=== PATIENT | female | born 1965 | race Caucasian/White ===

== ENCOUNTER 2017-06-20 20:13 | Emergency (ER) | payer MEDICAID ==
--- NOTE | 2017-06-20 20:15 | EDPHY ---
H & P Time Seen by Provider: 06/20/17 20:14 HPI/ROS: CHIEF COMPLAINT: Abnormal motor and sensory symptoms right arm, history of PTSD and conversion disorder HISTORY OF PRESENT ILLNESS: The patient is brought to the emergency department from outpatient psychiatric care residence with reported sensations of paresthesias in her right arm in abnormal right arm and leg movements. Patient denies any history of fall or trauma. The patient does have a history of anxiety and PTSD. The patient has a history of the symptoms chronically. She was hospitalized in 2016 with a similar presentation. At that point time she had extensive evaluation by Neurology and was felt to be experiencing a conversion disorder. The patient denies any history of fever, cough, congestion , dysuria or acute pain. She denies any complaints of neck pain or history of cervical manipulation. REVIEW OF SYSTEMS: A comprehensive 10 point review of systems is otherwise negative aside from elements mentioned in the history of present illness. Source: Patient - Medical/Surgical History Hx Asthma: No Hx Chronic Respiratory Disease: No Hx Diabetes: No Hx Cardiac Disease: No Hx Renal Disease: No Hx Cirrhosis: No Hx Alcoholism: No Hx HIV/AIDS: No Hx Splenectomy or Spleen Trauma: No Other PMH: HTN, PITUITARY ADENOMA/ PTSD, early dementia, SZ disorder - Social History Smoking Status: Never smoked - Physical Exam Exam: General Appearance: Alert, no distress Eyes: Pupils equal and round no pallor or injection ENT, Mouth: Mucous membranes moist Respiratory: There are no retractions, lungs are clear to auscultation Cardiovascular: Regular rate and rhythm Gastrointestinal: Abdomen is soft and nontender, no masses, bowel sounds normal Neurological: Alert and oriented x4, 5/5 strength noted all 4 extremities, sensation appears intact in all 4 extremities, cranial nerves 2-12 intact Skin: Warm and dry, no rashes Musculoskeletal: Neck is supple nontender Extremities: symmetrical, full range of motion Psychiatric: Patient is oriented X 3, there is no agitation Constitutional: Initial Vital Signs Temperature (C) 37.3 C 06/20/17 20:19 Heart Rate 78 06/20/17 20:19 Respiratory Rate 18 06/20/17 20:19 Blood Pressure 154/100 H 06/20/17 20:19 O2 Sat (%) 94 06/20/17 20:19 O2 Delivery Mode Room Air Allergies/Adverse Reactions: diazepam [From Valium] Allergy (Verified 01/26/16 22:13) Penicillins Allergy (Verified 09/24/15 18:03) Home Medications: Medication Instructions Recorded RX: ARIPiprazole [Abilify 5 mg (*)] 5 mg PO DAILY 01/27/16 RX: Albuterol [Proventil Inhaler 2 puffs IH Q4 PRN 01/27/16 HFA (*)] RX: Beclomethasone Qvar 40 [Qvar 1 puffs IH BID 01/27/16 40 (*)] RX: Cholecalciferol Vit D3 50,000 unit PO SA 01/27/16 [Vitamin D3 (*)] RX: Escitalopram Oxalate [Lexapro 10 mg PO DAILY 01/27/16 10 MG] RX: Ibuprofen [Motrin (*)] 600 mg PO Q6 PRN 01/27/16 RX: Melatonin [Melatonin 3 MG (*)] 6 mg PO HS 01/27/16 RX: Polyethylene Glycol 3350 17 gm PO DAILY 01/27/16 [Miralax 17 gm (*)] RX: Triamcinolone 0.1% 1 nuvia TP BID 01/27/16 [Triamcinolone 0.1% Cream (*)] RX: traZODone [traZODONE 50MG (*)] 50 mg PO HS 01/27/16 Medical Decision Making ED Course/Re-evaluation: I reviewed the patient's past medical records including her hospitalization in 2016 and subsequent neurologic consultation. The patient's presentation today is consistent with her prior presentations. I believe that she is experiencing acute conversion reaction and is not experiencing a stroke or true seizure disorder. Patient's vital signs are normal. The patient was observed to have some clonic jerking in the arm and leg which was intermittent in appeared to be voluntary. The patient's laboratory studies are unremarkable. She presents to the ED with chronic neurologic symptoms likely secondary to an ongoing conversion disorder. She did receive benzodiazepines intramuscularly prior to arrival. At this point time I do not feel that further workup is indicated. The patient is not suicidal or homicidal. She is currently under the care of [facility] for her anxiety disorder. Differential Diagnosis: Differential diagnosis considered includes seizure, stroke - Data Points Laboratory Results: Laboratory Results 06/20/17 20:05 06/20/17 20:05 06/20/17 06/20/17 20:05 20:05 WBC 8.09 10^3/uL 10^3/uL (3.80-9.50) RBC 4.47 10^6/uL 10^6/uL (4.18-5.33) Hgb 14.2 g/dL g/dL (12.6-16.3) Hct 39.1 % % (38.0-47.0) MCV 87.5 fL fL (81.5-99.8) MCH 31.8 pg pg (27.9-34.1) MCHC 36.3 g/dL g/dL (32.4-36.7) RDW 12.6 % % (11.5-15.2) Plt Count 268 10^3/uL 10^3/uL (150-400) MPV 8.9 fL fL (8.7-11.7) Neut % (Auto) 43.9 % % (39.3-74.2) Lymph % (Auto) 48.1 % H % (15.0-45.0) [place] % (Auto) 5.3 % % (4.5-13.0) Eos % (Auto) 1.9 % % (0.6-7.6) Baso % (Auto) 0.6 % % (0.3-1.7) Nucleat RBC Rel Count 0.0 % % (0.0-0.2) Absolute Neuts (auto) 3.55 10^3/uL 10^3/uL (1.70-6.50) Absolute Lymphs (auto) 3.89 10^3/uL H 10^3/uL (1.00-3.00) Absolute Monos (auto) 0.43 10^3/uL 10^3/uL (0.30-0.80) Absolute Eos (auto) 0.15 10^3/uL 10^3/uL (0.03-0.40) Absolute Basos (auto) 0.05 10^3/uL 10^3/uL (0.02-0.10) Absolute Nucleated RBC 0.00 10^3/uL 10^3/uL (0-0.01) Immature Gran % 0.2 % % (0.0-1.1) Immature Gran # 0.02 10^3/uL 10^3/uL (0.00-0.10) Sodium 143 mEq/L mEq/L (134-144) Potassium 3.8 mEq/L mEq/L (3.5-5.2) Chloride 105 mEq/L mEq/L (97-110) Carbon Dioxide 28 mEq/l mEq/l (22-31) Anion Gap 10 mEq/L mEq/L (8-16) BUN 9 mg/dL mg/dL (7-23) Creatinine 0.8 mg/dL mg/dL (0.6-1.0) Estimated GFR > 60 Glucose 87 mg/dL mg/dL (70-100) Calcium 9.4 mg/dL mg/dL (8.5-10.4) Departure - Departure Disposition: Home, Routine, Self-Care Clinical Impression: Anxiety Condition: Good Instructions: Anxiety (ED) Additional Instructions: Please follow up as scheduled with [facility]. Referrals: Paul Reeder MD [Primary Care Provider] - As per Instructions
[2017-06-20 20:31] LABS: % IMMATURE GRANULYOCYTES 0.2 % (0.0-1.1); ABSOLUTE IMMATURE GRANULOCYTES 0.02 10^3/uL (0.00-0.10); ADD DIFF? NO; ADD MORPH? NO; ADD SCAN? NO; ATYPICAL LYMPHOCYTE FLAG 0 (0-99); FRAGMENT RBC FLAG 0 (0-99); HEMATOCRIT 39.1 % (38.0-47.0); HEMOGLOBIN 14.2 g/dL (12.6-16.3); LEFT SHIFT FLG 0 (0-99); LIPEMIA HEMOLYSIS FLAG 90 (0-99); MEAN CELL HEMOGLOBIN 31.8 pg (27.9-34.1); MEAN CELL HEMOGLOBIN CONCENTR. 36.3 g/dL (32.4-36.7); MEAN CELL VOLUME 87.5 fL (81.5-99.8); MEAN PLATELET VOLUME 8.9 fL (8.7-11.7); PLATELET CLUMPS FLAG 10 (0-99); PLATELET COUNT 268 10^3/uL (150-400); RED BLOOD CELL COUNT 4.47 10^6/uL (4.18-5.33); RED CELL DISTRIBUTION WIDTH 12.6 % (11.5-15.2)
[2017-06-20 20:47] LABS: ANION GAP 10 mEq/L (8-16); CALCIUM 9.4 mg/dL (8.5-10.4); CARBON DIOXIDE 28 mEq/l (22-31); CHLORIDE 105 mEq/L (97-110); CREATININE 0.8 mg/dL (0.6-1.0); GLOMERULAR FILTRATION RATE > 60; GLUCOSE 87 mg/dL (70-100); POTASSIUM 3.8 mEq/L (3.5-5.2); SODIUM 143 mEq/L (134-144)
[2017-06-20 22:42] VITALS: BP 142/80; PULSE 76; RESP 16; TEMP 98.1; O2SAT 95
== END 2017-06-20 21:26 | disposition home or self-care (01) ==
LOC: EDUNIT#
DX: F41.9 Anxiety disorder, unspecified (principal); I10 Essential (primary) hypertension

== ENCOUNTER 2017-06-23 16:07 | Emergency (ER) | payer MEDICAID ==
--- NOTE | 2017-06-23 16:18 | EDPHY ---
H & P HPI/ROS: CHIEF COMPLAINT: Right leg pain HISTORY OF PRESENT ILLNESS: This patient is a non-anticoagulated 51 y/o female with history of conversion disorder often presenting as right-sided deficits complaining of right leg pain onset Thursday, two days ago. Thursday, she had a focal seizure, which usually involve her right side and present with shaking. Since that time, she has had pain in her right ankle which radiates up to her calf. She also has occasional swelling in right ankle and right hand. The pain at the back of her right calf makes it difficult for her to sleep on her right side. She has experienced right -sided facial paresthesias since Thursday as well. She has not taken any pain mediation today. She denies chest pain, shortness of breath, fever, or other associated symptoms. The patient was evaluated in this emergency department 06/20/17 following an episode of right-sided paresthesias and abnormal right-sided arm and leg movements. Her laboratory studies and examination at that time were unremarkable. She was hospitalized in 2015 with a similar presentation and had an extensive neurology evaluation. She was felt to be experiencing a conversion disorder at that time. She is currently under the care of [facility] and currently lives at [facility], a mental health rehabilitation and treatment facility. REVIEW OF SYSTEMS: A 10 point review of systems was performed and is negative with the exception of the elements mentioned in the history of present illness. Past Medical/Surgical History: 1. PTSD, MDD, Anxiety 2. History of possible conversion disorder. Patient reports history of CVA / seizure disorder. 3. Hypertension 4. Asthma 5. Early dementia 6. Pituitary adenoma Past medical records reviewed including ED visit 06/20/17 and admission 01/26/16. Social History: Nonsmoker. Lives at [facility]. Smoking Status: Never smoked Physical Exam: General Appearance: Alert, no distress Eyes: Pupils equal and round, no conjunctival pallor or injection ENT, Mouth: Mucous membranes moist Neck: Normal inspection Respiratory: Lungs are clear to auscultation Cardiovascular: Regular rate and rhythm Gastrointestinal: Abdomen is soft and non- tender Neurological: A&O, nonfocal, normal gait Skin: Warm and dry, no rash Extremities: Normal inspection of left leg. Tenderness over posterior aspect of right calf. Normal vascular exam. No edema. Psychiatric: Mood and affect normal Constitutional: Initial Vital Signs Temperature (C) 36.8 C 11/28/17 16:19 Heart Rate 76 06/23/17 16:19 Respiratory Rate 16 06/23/17 16:19 Blood Pressure 138/97 H 06/23/17 16:19 O2 Sat (%) 94 06/23/17 16:19 O2 Delivery Mode Room Air Allergies/Adverse Reactions: diazepam [From Valium] Allergy (Verified 06/23/17 16:21) Penicillins Allergy (Verified 06/23/17 16:21) Home Medications: Medication Instructions Recorded ARIPiprazole [Abilify 5 mg (*)] 5 mg PO DAILY 01/27/16 Albuterol [Proventil Inhaler HFA 2 puffs IH Q4 PRN 01/27/16 (*)] Escitalopram Oxalate [Lexapro 10 10 mg PO DAILY 01/27/16 MG] Ibuprofen [Motrin (*)] 600 mg PO Q6 PRN 01/27/16 Melatonin [Melatonin 3 MG (*)] 6 mg PO HS 01/27/16 Fosamax 70 MG (*) 06/23/17 Gabapentin 06/23/17 Risperidone 06/23/17 Vistaril 06/23/17 Medical Decision Making - Diagnostics Imaging Results: Imaging Impressions Extremity Venous Study 06/23/17 16:22 Impression: No deep venous thrombosis right leg. Findings and recommendations discussed with Emergency Department physician, DANE PINEDA at 17:20 hour, 06/23/2017. Final report concurs with initial preliminary interpretation. Imaging: Discussed imaging studies w/ scallop cutter Radiologist ED Course/Re-evaluation: 51 y/o female with history of possible conversion disorder presents with right- sided leg pain and right-sided facial paresthesias. Exam reveals tenderness over posterior aspect of right calf. Otherwise normal inspection. Past medical records reviewed including neuro consult by Dr. Murray, neurologist 01/27/16. MRI at that time revealed no CVA, Dr. Murray noted no objective neurologic deficits on exam, and proposed conversion disorder by diagnosis of exclusion. She has followed up with outpatient neurology and mental health services, and is currently in an inpatient mental health rehabilitation facility. IV established. Plan for labs including CBC, BMP. Plan for US right leg to r/o DVT. 17:20 US negative for DVT. Plan to d/c home in good condition. Follow up and return precautions discussed. The patient is comfortable with this plan. Differential Diagnosis: Differential diagnosis includes though it is not limited to DVT, cellulitis, dislocation, tendon disruption, neurovascular compromise. Departure - Departure Disposition: Home, Routine, Self-Care Clinical Impression: Strain of calf muscle Qualifiers: Encounter type: initial encounter Laterality: right Qualified Code(s): S86.811A - Strain of other muscle(s) and tendon(s) at lower leg level, right leg , initial encounter Condition: Good Instructions: Muscle Strain (ED) Additional Instructions: 1. Take ibuprofen or Tylenol as directed below as needed for pain. 2. Rest, ice, elevation may help for comfort. Follow up with your primary care provider for further evaluation. 3. Return to the emergency department for worsening pain, swelling, numbness, weakness or other concerns. Adult Pain & Fever Control: We recommend Acetaminophen (Tylenol) and Ibuprofen (Motrin,Advil) for pain and fever control. When fever is high or pain severe, both drugs can be used at the same time, but at different intervals. Please note the time differences. Your dose is: Acetaminophen 650mg every 4 to 6 hours Ibuprofen 600mg every 6-8 hours with food Note: do not take Acetaminophen with Hydrocodone (Vicodin, Lortab) or Oxycodone (Percocet). These medications also contain Acetaminophen. No more than 3000mg of Acetaminophen should be taken in 24 hours (for an adult). Referrals: Patient,NotPresent [Unknown] - As per Instructions Hallie Salomon MD [Medical Doctor] - As per Instructions Report Scribed for: Dane Pineda Report Scribed by: Leeann Day Date of Report: 06/23/17 Time of Report: 16:25 Physician Review and Approval Statement: 06/23/17 16:25 Portions of this note were transcribed by a medical referral coordinator. I personally performed a history, physical exam, medical decision making, and confirmed accuracy of information the transcribed note.
[2017-06-23 16:20] VITALS: RESP 16
[2017-06-23 18:03] VITALS: BP 121/84; PULSE 66; TEMP 98.4; O2SAT 97
== END 2017-06-23 18:03 | disposition home or self-care (01) ==
LOC: EDUNIT#
DX: S86.811A Strain of other muscle(s) and tendon(s) at lower leg level, right leg, initial encounter (principal); I10 Essential (primary) hypertension; J45.909 Unspecified asthma, uncomplicated; Z86.73 Personal history of transient ischemic attack (TIA), and cerebral infarction without residual deficits; X58.XXXA Exposure to other specified factors, initial encounter